=== PATIENT | female | born 1945 | race Caucasian/White ===

== ENCOUNTER 2022-05-13 14:46 | Emergency (ER) | payer MEDICARE ==
[~2022-05-13 14:46] MED LIST: ASPIRIN EC81 MG PO; DYAZIDE 37.5/251 EA PO; ELIQUIS 5 MG TAB5 MG PO; IMDUR ER TAB 3030 MG PO; LOPRESSOR 25 MG25 MG PO; NITROGLYCERIN0.4 MG SL; PAXIL20 MG PO; SYNTHROID100 MCG PO; ZOCOR20 MG PO
== END 2022-05-13 17:15 | disposition home or self-care (01) ==
LOC: ER1 14:46
DX: S62.314A Displaced fracture of base of fourth metacarpal bone, right hand, initial encounter for closed fracture (principal); S62.316A Displaced fracture of base of fifth metacarpal bone, right hand, initial encounter for closed fracture; S93.401A Sprain of unspecified ligament of right ankle, initial encounter; S05.11XA Contusion of eyeball and orbital tissues, right eye, initial encounter; R07.81 Pleurodynia; E78.00 Pure hypercholesterolemia, unspecified; Z88.0 Allergy status to penicillin; W01.10XA Fall on same level from slipping, tripping and stumbling with subsequent striking against unspecified object, initial encounter; Y92.512 Supermarket, store or market as the place of occurrence of the external cause
CPT/HCPCS: 29125; 70450; 71045; 73130; 73610; 93005; 99284